=== PATIENT | male | born 1960 | race Caucasian/White ===

== ENCOUNTER 2018-01-26 13:42 | Inpatient (IN) | payer OTHER ==
[~2018-01-26] VITALS: Ht 182.9 cm; Wt 88.7 kg
[2018-01-26] MEDS ORDERED: FENTANYL PF 100 MCG/2ML ONE (13:49)
[2018-01-26] MEDS ORDERED: MIDAZOLAM 1 MG/ML, 5ML ONE (13:50)
[2018-01-26] MEDS ORDERED: LIDOCAINE/PF 1%, 30ML ONE (13:50)
[2018-01-26] MEDS ORDERED: BIVALIRUDIN 250 MG ONE ×2 (13:50→14:34)
[2018-01-26] MEDS ORDERED: TICAGRELOR 90 MG TABLET ONE (13:50)
[2018-01-26 14:03] LABS: BASOPHILS # (AUTO) 0.01 x10^3/uL (0-0.1); BASOPHILS % (AUTO) 0 % (0-1); EOSINOPHILS # (AUTO) 0.03 x10^3/uL (0-0.4); EOSINOPHILS % (AUTO) 0 % (1-7); LYMPHOCYTES % (AUTO) 10 % (22-44); MD NO; MEAN CORPUSCULAR HEMOGLOBIN 34.6 pg (27.5-34.5); MEAN CORPUSCULAR HGB CONC 35.1 g/dL (33.2-36.2); MEAN CORPUSCULAR VOLUME 98.6 fL (81-97); MEAN PLATELET VOLUME 7.3 fL (7.4-10.4); MONOCYTES # (AUTO) 0.88 x10^3/uL (0.2-0.8); MONOCYTES % (AUTO) 8 % (2-9); NEUTROPHILS # (AUTO) 9.52 x10^3/uL (1.8-6.8); NEUTROPHILS % (AUTO) 82 % (42-75); PLATELET COUNT 287 x10^3/uL (130-400); RED BLOOD COUNT 4.66 x10^6/uL (4.38-5.82); RED CELL DISTRIBUTION WIDTH 12.4 % (9.4-14.8)
[2018-01-26 14:14] LABS: INTERNATIONAL NORMALIZED RATIO 0.97 (0.93-1.1)
[2018-01-26 15:00] VITALS: BP 104/57
[2018-01-26] MEDS ORDERED: ACETAMINOPHEN 325 MG TABLET PO PRN ×2 (15:00→16:00)
[2018-01-26] MEDS ORDERED: BIVALIRUDIN 500 MG in DEXTROSE 5% 100 ML IV SCH (15:00)
[2018-01-26] MEDS ORDERED: ONDANSETRON 2MG/ML, 2ML IVPush PRN (15:00)
[2018-01-26] MEDS: PLEASE ENTER ALLERGIES MC SCH ×2 (15:00→23:00)
[2018-01-26] MEDS ORDERED: LABETALOL 5MG/ML, 20ML IVPush PRN (16:00)
[2018-01-26] MEDS ORDERED: morphine SULFATE 10 MG/ML, 1ML IVPush PRN (16:00)
[2018-01-26] MEDS ORDERED: POLYETHYLENE GLYCOL 17 GM PACKET PO PRN (16:00)
[2018-01-26] MEDS ORDERED: OXYcodone IR 5MG TABLET PO PRN (16:00)
[2018-01-26] MEDS ORDERED: BISACODYL 10 MG SUPP PR PRN (16:00)
[2018-01-26] MEDS ORDERED: DOCUSATE 100 MG CAPSULE PO PRN (16:00)
[2018-01-26] MEDS: SODIUM CHLORIDE 0.9% 1,000 ML IV SCH (16:28)
[2018-01-26] MEDS: INSULIN LISPRO 100 UNITS/ML, PEN SQ-INSULIN SCH ×2 (16:46→20:33)
[2018-01-26] MEDS: TICAGRELOR 90 MG TABLET PO SCH (20:32)
[2018-01-26] MEDS: INSULIN GLARGINE 100 UNITS/ML, PEN SQ-INSULIN SCH (20:32)
[2018-01-27] MEDS: SODIUM CHLORIDE 0.9% 1,000 ML IV SCH ×3 (02:30→21:54)
[2018-01-27 04:00] VITALS: BP 107/72
[2018-01-27 04:38] LABS: ALANINE AMINOTRANSFERASE 42 U/L (12-78); ALBUMIN 2.9 g/dL (3.4-5.0); ANION GAP 7 mmol/L (5-15); CHLORIDE 104 mmol/L (98-107); CREATININE 1.05 mg/dL (0.7-1.3)
[2018-01-27 04:41] LABS: ALKALINE PHOSPHATASE 53 U/L (45-117); BASOPHILS % (AUTO) 0 % (0-1); EOSINOPHILS # (AUTO) 0.05 x10^3/uL (0-0.4); EOSINOPHILS % (AUTO) 1 % (1-7); LYMPHOCYTES # (AUTO) 0.95 x10^3/uL (1-3.4); LYMPHOCYTES % (AUTO) 10 % (22-44); MD NO; MEAN CORPUSCULAR HEMOGLOBIN 34.4 pg (27.5-34.5); MEAN CORPUSCULAR HGB CONC 34.8 g/dL (33.2-36.2); MEAN CORPUSCULAR VOLUME 98.9 fL (81-97); MEAN PLATELET VOLUME 7.4 fL (7.4-10.4); MONOCYTES % (AUTO) 8 % (2-9); NEUTROPHILS # (AUTO) 7.89 x10^3/uL (1.8-6.8); NEUTROPHILS % (AUTO) 81 % (42-75); PLATELET COUNT 262 x10^3/uL (130-400); RED BLOOD COUNT 3.89 x10^6/uL (4.38-5.82); RED CELL DISTRIBUTION WIDTH 12.2 % (9.4-14.8); TOTAL PROTEIN 6.4 g/dL (6.4-8.2)
[2018-01-27] MEDS: INSULIN GLARGINE 100 UNITS/ML, PEN SQ-INSULIN SCH ×2 (10:13→22:05)
[2018-01-27] MEDS: INSULIN LISPRO 100 UNITS/ML, PEN SQ-INSULIN SCH ×4 (10:14→22:05)
[2018-01-27] MEDS: ASPIRIN 81 MG TABLET EC PO SCH (10:15)
[2018-01-27] MEDS: SENNA/DOCUSATE TABLET PO SCH (10:16)
[2018-01-27] MEDS: TICAGRELOR 90 MG TABLET PO SCH ×2 (10:16→22:06)
[2018-01-27 21:40] VITALS: BP 121/81
[2018-01-27] MEDS: ATORVASTATIN 40 MG TABLET PO SCH (22:06)
[2018-01-28 02:00] VITALS: BP 113/73
[2018-01-28] MEDS: INSULIN LISPRO 100 UNITS/ML, PEN SQ-INSULIN SCH ×4 (07:00→20:36)
[2018-01-28 07:20] VITALS: BP 129/88
[2018-01-28] MEDS: SODIUM CHLORIDE 0.9% 1,000 ML IV SCH ×2 (07:54→17:54)
[2018-01-28] MEDS: SENNA/DOCUSATE TABLET PO SCH (08:58)
[2018-01-28] MEDS: LISINOPRIL 5 MG TABLET PO SCH (08:58)
[2018-01-28] MEDS: TICAGRELOR 90 MG TABLET PO SCH ×2 (08:58→20:13)
[2018-01-28] MEDS: ASPIRIN 81 MG TABLET EC PO SCH (08:58)
[2018-01-28] MEDS: INSULIN GLARGINE 100 UNITS/ML, PEN SQ-INSULIN SCH ×2 (09:00→20:35)
[2018-01-28 14:00] VITALS: BP 88/58
[2018-01-28 16:10] VITALS: BP 102/67
[2018-01-28 20:10] VITALS: BP 84/54
[2018-01-28] MEDS: ATORVASTATIN 40 MG TABLET PO SCH (20:13)
[2018-01-29 02:10] VITALS: BP 92/65
[2018-01-29] MEDS: SODIUM CHLORIDE 0.9% 1,000 ML IV SCH (04:24)
[2018-01-29 04:49] LABS: BASOPHILS # (AUTO) 0.02 x10^3/uL (0-0.1); BASOPHILS % (AUTO) 0 % (0-1); EOSINOPHILS # (AUTO) 0.11 x10^3/uL (0-0.4); EOSINOPHILS % (AUTO) 1 % (1-7); LYMPHOCYTES # (AUTO) 1.25 x10^3/uL (1-3.4); LYMPHOCYTES % (AUTO) 14 % (22-44); MD NO; MEAN CORPUSCULAR HEMOGLOBIN 34.8 pg (27.5-34.5); MEAN CORPUSCULAR HGB CONC 35.1 g/dL (33.2-36.2); MEAN CORPUSCULAR VOLUME 99.4 fL (81-97); MEAN PLATELET VOLUME 7.9 fL (7.4-10.4); MONOCYTES # (AUTO) 0.81 x10^3/uL (0.2-0.8); MONOCYTES % (AUTO) 9 % (2-9); NEUTROPHILS # (AUTO) 6.66 x10^3/uL (1.8-6.8); NEUTROPHILS % (AUTO) 75 % (42-75); PLATELET COUNT 251 x10^3/uL (130-400); RED BLOOD COUNT 3.75 x10^6/uL (4.38-5.82)
[2018-01-29 05:02] LABS: ALBUMIN 2.7 g/dL (3.4-5.0); ANION GAP 8 mmol/L (5-15); CALCIUM 8.2 mg/dL (8.5-10.1); CHLORIDE 104 mmol/L (98-107); HEMOGLOBIN A1C 7.9 % (4.2-6.3)
[2018-01-29 05:06] LABS: ALANINE AMINOTRANSFERASE 44 U/L (12-78); ALKALINE PHOSPHATASE 73 U/L (45-117); BILIRUBIN,TOTAL 0.7 mg/dL (0.2-1.0); CHOL/HDL RATIO 2.5; CHOLESTEROL, TOTAL 99 mg/dL (140-239); CREATININE 1.19 mg/dL (0.7-1.3); HDL CHOL % 39 % (26-37); HDL CHOLESTEROL (DIRECT) 39 mg/dL (40-60); LDL CHOLESTEROL,CALCULATED 44 mg/dL (54-169); LDL/HDL RATIO 1.1 (0.5-3.0); TOTAL PROTEIN 6.1 g/dL (6.4-8.2); TRIGLYCERIDES 81 mg/dL (50-200); VLDL CHOLESTEROL 16 mg/dL (0-25)
[2018-01-29 06:36] VITALS: BP 103/63
[2018-01-29] MEDS: INSULIN LISPRO 100 UNITS/ML, PEN SQ-INSULIN SCH ×2 (07:00→11:57)
[2018-01-29] MEDS: LISINOPRIL 5 MG TABLET PO SCH (09:00)
[2018-01-29] MEDS: SENNA/DOCUSATE TABLET PO SCH (09:00)
[2018-01-29] MEDS: ASPIRIN 81 MG TABLET EC PO SCH (09:47)
[2018-01-29] MEDS: INSULIN GLARGINE 100 UNITS/ML, PEN SQ-INSULIN SCH (09:47)
[2018-01-29] MEDS: TICAGRELOR 90 MG TABLET PO SCH (09:47)
[2018-01-29] MEDS ORDERED: ASPI-621 PO (10:54)
[2018-01-29] MEDS ORDERED: METF500T17 PO (10:54)
[2018-01-29] MEDS ORDERED: INSU100V8 SQ ×2 (10:54)
[2018-01-29] MEDS ORDERED: TICA90TA PO (11:40)
[2018-01-29] MEDS ORDERED: ATOR40TA78 PO (11:40)
[2018-01-29] MEDS ORDERED: LISI5TAB7 PO (11:40)
[2018-01-29] MEDS ORDERED: NITR0.4T28 SL (11:41)
[2018-01-29] MEDS ORDERED: UBID1CAP53 PO (12:58)
== END 2018-01-29 13:28 | disposition home or self-care (01) | DRG 247 ==
LOC: ED 13:53 → EDIP 13:54 → ED 14:07 → CCU 14:43 → 5SO 01-27 18:24
PROVIDERS: ADMIT Hospitalist; ATTEND Hospitalist
PROC: 4A023N7 Measurement of Cardiac Sampling and Pressure, Left Heart, Percutaneous Approach (ICD-10-PCS; principal; 2018-01-26)
PROC: 027034Z Dilation of Coronary Artery, One Artery with Drug-eluting Intraluminal Device, Percutaneous Approach (ICD-10-PCS; 2018-01-26)
PROC: B2111ZZ Fluoroscopy of Multiple Coronary Arteries using Low Osmolar Contrast (ICD-10-PCS; 2018-01-26)
PROC: B2151ZZ Fluoroscopy of Left Heart using Low Osmolar Contrast (ICD-10-PCS; 2018-01-26)
DX: I21.19 ST elevation (STEMI) myocardial infarction involving other coronary artery of inferior wall (principal); E87.1 Hypo-osmolality and hyponatremia; I25.10 Atherosclerotic heart disease of native coronary artery without angina pectoris; D72.828 Other elevated white blood cell count; I10 Essential (primary) hypertension; E11.9 Type 2 diabetes mellitus without complications; F17.210 Nicotine dependence, cigarettes, uncomplicated; Z86.14 Personal history of Methicillin resistant Staphylococcus aureus infection; I25.2 Old myocardial infarction; Z79.4 Long term (current) use of insulin; Z71.6 Tobacco abuse counseling; Z79.899 Other long term (current) drug therapy
CPT/HCPCS: 36415; 80047; 80053; 80061; 82962; 83036; 83735; 84484; 85025; 85610; 85730; 87081; 93005; 93306; 93458; 99156; 99157; 99291; C1760; C1769; C1894; G0378; J0583; J2250; J3010; J3490; C1725; C1874; C1887; J1815; J7030; Q9967

== ENCOUNTER → 2018-03-01 | Outpatient (CLI) | payer OTHER ==
[~2018-03-01] MED LIST: ASPI-621 PO; ATOR40TA78 PO; INSU100V8 SQ; LISI5TAB7 PO; METF500T17 PO; NITR0.4T28 SL; TICA90TA PO; UBID1CAP53 PO
== END | disposition home or self-care (01) ==
LOC: CFH 07:59
PROVIDERS: ATTEND Internal Medicine Cardiovascular Disease
DX: R07.89 Other chest pain (principal); I25.10 Atherosclerotic heart disease of native coronary artery without angina pectoris; E78.00 Pure hypercholesterolemia, unspecified; E11.8 Type 2 diabetes mellitus with unspecified complications; F17.200 Nicotine dependence, unspecified, uncomplicated
CPT/HCPCS: 78452; A9502

== ENCOUNTER → 2019-05-23 | Outpatient (CLI) | payer OTHER, BC ==
[~2019-05-23] MED LIST changes: -ASPI-621 PO; +ASPI81TA45 PO
== END | disposition home or self-care (01) ==
LOC: CFH 09:07
PROVIDERS: ATTEND Nurse Practitioner Family
DX: M19.012 Primary osteoarthritis, left shoulder (principal); M75.102 Unspecified rotator cuff tear or rupture of left shoulder, not specified as traumatic; M25.412 Effusion, left shoulder